=== PATIENT | male | born 1980 | race Caucasian/White ===

== ENCOUNTER 2020-01-03 21:54 | Emergency (ER) | payer SELFPAY ==
[~2020-01-03] VITALS: Ht 187.9 cm; Wt 127.0 kg
[2020-01-03 22:58] LABS: BASO # 0.1 10*3/uL (0.0-0.1); BASO % 0.6 % (0.0-1.0); EOS # 0.1 10*3/uL (0.0-0.4); EOS % 1.6 % (1.0-4.0); HEMATOCRIT 38.8 % (42.0-52.0); LYMPH # 1.8 10*3/uL (1.3-4.4); LYMPH % 21.1 % (27.0-41.0); MEAN CELL VOLUME 95.8 fl (80.0-94.0); MEAN CORPUSCULAR HGB 32.3 pg (27.0-31.0); MEAN CORPUSCULAR HGB CONC 33.8 g/dl (33.0-37.0); MONO # 0.8 10*3/uL (0.1-1.0); MONO % 9.9 % (3.0-9.0); NEUT # 5.7 10*3/uL (2.3-7.9); NEUT % 66.3 % (47.0-73.0); PLATELET COUNT AUTOMATED 242 10*3/uL (130-400); RED BLOOD COUNT 4.05 10*6/uL (4.50-5.90); RED CELL DISTRI WIDTH 13.4 % (0-14.5); WHITE BLOOD COUNT 8.5 10*3/uL (4.8-10.8)
[2020-01-03 23:16] LABS: ALBUMIN 3.6 gm/dl (3.1-4.5); ALKALINE PHOSPHATASE 91 U/L (45-117); BUN 20 mg/dl (7-24); CHLORIDE 108 mmol/L (98-107); POTASSIUM 3.8 mmol/L (3.5-5.1); SGOT/AST 18 IU/L (3-35); SGPT/ALT 42 U/L (12-78); SODIUM 139 mmol/L (136-145); TOTAL PROTEIN 7.4 gm/dL (6.4-8.2)
[2020-01-03 23:20] LABS: ETHYL ALCOHOL < 3.0 mg/dl (<3); NT-proBNP < 5.00 pg/mL (0-125); TROPONIN I < 0.015 ng/ml (<0.045)
[2020-01-04] MEDS ORDERED: ELIMITE 5%60 GM T (00:51)
[2020-01-04] MEDS ORDERED: CEPHALEXIN500 M1 PO (00:51)
== END 2020-01-04 01:12 | disposition home or self-care (01) ==
LOC: ED 21:54
PROVIDERS: Physician Assistant
DX: R23.4 Changes in skin texture (principal)

== ENCOUNTER 2024-01-29 07:12 | Emergency (ER) | payer OTHER ==
[~2024-01-29] VITALS: Ht 187.9 cm; Wt 110.3 kg
[~2024-01-29 07:12] MED LIST: CEPHALEXIN500 M1 PO; ELIMITE 5%60 GM T
[2024-01-29] MEDS ORDERED: ACETAMINOPHEN 325 MG TAB PO ONE (08:20)
[2024-01-29] MEDS ORDERED: GABAPENTIN 300 MG CAP PO ONE (08:20)
[2024-01-29] MEDS ORDERED: IBUPROFEN 400 MG TAB PO ONE (08:20)
[2024-01-29] MEDS ORDERED: TYLENOL EXTRA500 MG PO (08:21)
[2024-01-29] MEDS ORDERED: VALTREX1000 MG PO (08:21)
[2024-01-29] MEDS ORDERED: Motrin,Rufen400 MG PO (08:21)
[2024-01-29] MEDS ORDERED: MORPHINE SULFAT15 MG PO (08:29)
== END 2024-01-29 08:26 | disposition home or self-care (01) ==
LOC: ED 07:12
DX: B02.9 Zoster without complications (principal); R10.9 Unspecified abdominal pain

== ENCOUNTER 2024-02-07 13:15 | Emergency (ER) | payer OTHER ==
[~2024-02-07] VITALS: Ht 187.9 cm; Wt 106.6 kg
[~2024-02-07 13:15] MED LIST changes: +MORPHINE SULFAT15 MG PO; +Motrin,Rufen400 MG PO; +TYLENOL EXTRA500 MG PO; +VALTREX1000 MG PO
[2024-02-07 14:10] LABS: BASO % 0.2 % (0.0-1.0); EOS % 0.3 % (1.0-4.0); HEMATOCRIT 42.2 % (42.0-52.0); LYMPH # 1.7 10*3/uL (1.3-4.4); LYMPH % 13.9 % (27.0-41.0); MEAN CELL VOLUME 91.7 fl (80.0-94.0); MEAN CORPUSCULAR HGB 32.4 pg (27.0-31.0); MEAN CORPUSCULAR HGB CONC 35.3 g/dl (33.0-37.0); MEAN PLATELET VOLUME 9.4 fl (9.6-12.3); MONO # 0.9 10*3/uL (0.1-1.0); MONO % 7.3 % (3.0-9.0); NEUT # 9.3 10*3/uL (2.3-7.9); NEUT % 77.6 % (47.0-73.0); PLATELET COUNT AUTOMATED 238 10*3/uL (130-400); RED CELL DISTRI WIDTH 12.3 % (0-14.5)
[2024-02-07 14:42] LABS: BUN 19 mg/dl (9-23); CHLORIDE 106 mmol/L (98-107); LIPASE 37 U/L (12-53); POTASSIUM 3.9 mmol/L (3.4-5.1)
[2024-02-07] MEDS ORDERED: Acetaminophen/Hydrocodone 5 MG/325 MG TABLET PO ONE ×2 (14:45→16:30)
[2024-02-07] MEDS ORDERED: HYDROmorphONE Hydrochloride 1 MG/ML SYR IV ONE (16:50)
[2024-02-07] MEDS ORDERED: SODIUM CHLORIDE 0.9% 1,000 ML IV ONE (16:50)
== END 2024-02-07 19:42 | disposition short-term general hospital (02) ==
LOC: ED 13:15
PROVIDERS: Nurse Practitioner Family
DX: S12.691A Other nondisplaced fracture of seventh cervical vertebra, initial encounter for closed fracture (principal); R07.89 Other chest pain; M54.6 Pain in thoracic spine; R60.0 Localized edema; R51.9 Headache, unspecified; M25.512 Pain in left shoulder; M79.605 Pain in left leg; Z79.899 Other long term (current) drug therapy; V58.5XXA Driver of pick-up truck or van injured in noncollision transport accident in traffic accident, initial encounter; Y93.I9 Activity, other involving external motion; Y92.89 Other specified places as the place of occurrence of the external cause; Y99.8 Other external cause status